=== PATIENT | male | born 1940 | race Caucasian/White ===

== ENCOUNTER 2016-12-02 15:12 | Inpatient (IN) | payer MEDICARE ==
[2016-12-02] VITALS (8 sets, daily range): BP systolic 145–205; BP diastolic 62–117
[~2016-12-02] VITALS: Ht 167.6 cm; Wt 89.2 kg
--- NOTE | 2016-12-02 15:45 | NUR ---
BP DR. CLEANING NOTIFIED.
[2016-12-02 16:00] LABS: HEMATOCRIT 40.5 % (42.0-52.0); HEMOGLOBIN 12.9 g/dl (14.0-18.0); MEAN CELL VOLUME 93.8 fl (80.0-94.0); MEAN CORPUSCULAR HGB 29.9 pg (27.0-31.0); MEAN CORPUSCULAR HGB CONC 31.9 g/dl (33.0-37.0); MEAN PLATELET VOLUME 10.5 fl (9.6-12.3); NUCLEATED RED BLOOD CELL 0.1 % (0.0-0.0); PLATELET COUNT AUTOMATED 86 10*3/uL (130-400); RED BLOOD COUNT 4.32 10*6/uL (4.50-5.90); RED CELL DISTRI WIDTH 14.2 % (0-14.5)
[2016-12-02 16:07] LABS: ACT PARTIAL THROMBO TIME 22.3 SECONDS (20.8-31.5)
[2016-12-02 16:13] LABS: ALBUMIN 3.2 gm/dl (3.1-4.5); ALKALINE PHOSPHATASE 84 U/L (45-117); BUN 29 mg/dl (7-24); CHLORIDE 103 mmol/L (98-107); CREATININE 1.38 mg/dL (0.70-1.30); LIPASE 42 U/L (73-393); POTASSIUM 3.8 mmol/L (3.5-5.1); SGOT/AST 11 IU/L (3-35); SGPT/ALT 15 U/L (12-78); SODIUM 139 mmol/L (136-145); TOTAL PROTEIN 5.9 gm/dL (6.4-8.2); TROPONIN I < 0.015 ng/ml (<0.045)
[2016-12-02 16:19] LABS: BASOPHILS 1 % (0-1); PLATELET SUFFICIENCY LOW (NORMAL); TOTAL CELLS COUNTED 100 #CELLS
[2016-12-02 16:21] LABS: BURR CELLS FEW; OVALOCYTES FEW
[2016-12-02 16:23] LABS: WHITE BLOOD COUNT 43.6 10*3/uL (4.8-10.8)
--- NOTE | 2016-12-02 16:23 | NUR ---
PT BACK FROM CT AND BP STILL 200. HYDRALAZINE IV ORDERED.
--- NOTE | 2016-12-02 16:24 | NUR ---
CRITICAL LEVEL FROM LAB. WBC 43.6. DR. CLEANING NOTIFIED.
[2016-12-02 17:07] LABS: BILIRUBIN NEGATIVE (NEGATIVE); BLOOD TRACE-INTACT (NEGATIVE); CLARITY SL CLOUDY (CLEAR); COLOR YELLOW (YELLOW); GLUCOSE 2+ (NEGATIVE); KETONE TRACE (NEGATIVE); LEUKO ESTERASE NEGATIVE (NEGATIVE); NITRITE NEGATIVE (NEGATIVE); SPECIFIC GRAVITY 1.025 (1.005-1.030); UROBILINOGEN 0.2 E.U./dl (0.2-1.0)
[2016-12-02 17:18] LABS: BACTERIA TRACE; EPITHELIAL CELLS 0-2
[2016-12-02 17:19] LABS: MUCOUS 1+
--- NOTE | 2016-12-02 20:00 | NUR ---
A 76, admitted to , under the services of SAVANAH Lutz DO with a diagnosis of CLOSED HEAD INJURY .. Chief complaint is LACERATION TO FOREHEAD.. Patient arrived via ambulance from ER. Monitor applied. Initial assessment completed. Vital signs taken and recorded. SAVANAH LUTZ DO notified of admission to the unit. Orders received. See assessment for past medical history, medications and allergies. Patient and/or family oriented to unit. [facility] visitation policy reviewed. Clothing/patient valuable form completed. JEFFERY MOSELEY
[2016-12-02] MEDS ORDERED: COZAAR100 MG PO (22:11)
[2016-12-02] MEDS ORDERED: METFORMIN500 MG PO (22:11)
[2016-12-02] MEDS ORDERED: 'CLONIDINE0.1 MG PO (22:12)
[2016-12-02] MEDS ORDERED: IMDUR SA30 MG PO (22:13)
[2016-12-02] MEDS ORDERED: PRAVACHOL40 MG PO (22:13)
[2016-12-02] MEDS ORDERED: ZOLOFT100 MG PO (22:14)
[2016-12-02] MEDS ORDERED: TOPROL XL25 MG PO (22:14)
[2016-12-02] MEDS ORDERED: AMITRIPTYLINE25 MG PO (22:15)
[2016-12-02] MEDS ORDERED: HUMALOG100 UNIT/2 SQ (22:16)
[2016-12-02] MEDS ORDERED: ARICEPT10 M1 PO (22:16)
[2016-12-02] MEDS ORDERED: DOXAZOSIN MESYLA1 MG PO (22:16)
[2016-12-02] MEDS ORDERED: PROTONIX TR40 M1 PO (22:17)
[2016-12-02] MEDS ORDERED: OXYBUTYNIN5 MG PO (22:17)
[2016-12-02] MEDS ORDERED: CREON DR 24,001 EACH PO (22:18)
[2016-12-02] MEDS ORDERED: Sinemet Cr 50/21 TAB PO (22:19)
[2016-12-02] MEDS ORDERED: HYDR25T PO (22:19)
[2016-12-02 22:55] LABS: ABG BASE EXCESS -1.2 mmol/L (-2.0-2.0); ABG HCO3 22.8 mmol/l (22-26); ABG O2 SATURATION 91.8 % (95-97); ARTERIAL BLOOD GAS PCO2 36.5 mmHg (35-45); ARTERIAL BLOOD GAS PH 7.408 (7.35-7.45); ARTERIAL BLOOD GAS PO2 63.5 mmHg (80-90)
[2016-12-03] VITALS: BP 147/95
--- NOTE | 2016-12-03 | NUR ---
PT. RESTING IN BED. AWAKE & ALERT. IV FLUIDS INFUSING INTO LEFT ARM WITHOUT DIFFICULTY; SITE ASYMPTOMATIC. PULSE OX 91% ON ROOM AIR. APPLIED 02 AT 2.5 LITERS & PULSE OX IS NOW 93%. PT. STATES THAT HE WEARS A CPAP AT HOME AT NIGHT. LUNGS DIMINISHED BILATERALLY WITH NO COUGH NOTED. THAO HOSE/SCD'S INTACT. PT'S IS PRESENT IN THE ROOM. STATES THAT PT'S BLOOD SUGAR IS 405; PT. HAS AN INSULIN PUMP.
--- NOTE | 2016-12-03 02:00 | NUR ---
BLOOD SUGAR 345.
--- NOTE | 2016-12-03 06:10 | NUR ---
TOOK PO MEDICATION WITHOUT DIFFICULTY. REFSUSES PAIN MEDICATION AT THIS TIME. IV FLUIDS CONTINUE TO INFUSE WITHOUT DIFFICULTY. PRESENT IN ROOM.
[2016-12-03 06:19] LABS: HEMATOCRIT 38.5 % (42.0-52.0); HEMOGLOBIN 12.3 g/dl (14.0-18.0); MEAN CELL VOLUME 93.7 fl (80.0-94.0); MEAN CORPUSCULAR HGB 29.9 pg (27.0-31.0); MEAN CORPUSCULAR HGB CONC 31.9 g/dl (33.0-37.0); MEAN PLATELET VOLUME 10.9 fl (9.6-12.3); PLATELET COUNT AUTOMATED 99 10*3/uL (130-400); RED BLOOD COUNT 4.11 10*6/uL (4.50-5.90); RED CELL DISTRI WIDTH 14.3 % (0-14.5)
[2016-12-03 06:41] LABS: TOTAL CELLS COUNTED 100 #CELLS
[2016-12-03 06:42] LABS: PLATELET SUFFICIENCY LOW (NORMAL)
[2016-12-03 06:44] LABS: WHITE BLOOD COUNT 50.8 10*3/uL (4.8-10.8)
[2016-12-03 06:48] LABS: BUN 30 mg/dl (7-24); CHLORIDE 105 mmol/L (98-107); CHOLESTEROL 106 mg/dL (<200); CREATININE 1.15 mg/dL (0.70-1.30); HDL CHOLESTEROL 41 mg/dl (40-60); LDL CHOLESTEROL 44 mg/dL (9-159); PHOSPHOROUS 2.7 mg/dL (2.5-4.9); POTASSIUM 3.2 mmol/L (3.5-5.1); SODIUM 143 mmol/L (136-145); TRIGLYCERIDES 103 mg/dl (<150); VLDL CHOLESTEROL 21 mg/dL (6-40)
[2016-12-03 06:54] LABS: FREE T4 1.16 ng/dl (0.76-1.46)
--- NOTE | 2016-12-03 06:54 | NUR ---
CALLED AND NOTIFIED DR PALACIOS OF WBC CRITICAL RESULTS OF 50.8. NO NEW ORDERS RECEIVED.
[2016-12-03 07:11] LABS: VITAMIN D, 25-HYDROXY 32.5 ng/mL (30-100)
[2016-12-03 08:00] VITALS: BP 117/82
--- NOTE | 2016-12-03 08:30 | NUR ---
Cost Estimating Clerk in to talk to patient. Patient states lives at HOME with HIS WIFE0. There are A FEW steps in the home. Physician: DR TERRELL [facility] NONE Patient's level of ADLs: MODERATE ASSIST Patient has working utilities: YES DME: CANE/CPAP Follow-up physician's appointment after d/c: WILL BE MADE PRIOR TO DC Does patient want to access PORTAL?: Discharge plan HOME. NADEEN SANTONE PRESENT. THEY ARE NOT INTERSTED IN SNF. WOULD LIKE A WALKER. SCRIPR OBTAINED AND FAXED TO [facility]. PER GER, THEY WILL DELIVER TODAY TO HIS ROOM. PT WANTS TO STAY HERE UNDER HIS MEDICARE. AWARE HE MAY HAVE COPAY. STATES THEY HAVE SECONDARY INS THAT WILL COVER THIS COST. REFUSAL TO TRANSFER TO [facility] PAPER SIGNED AND FAXED TO [facility] AND [facility] IN BILLING.
[2016-12-03 12:00] VITALS: BP 155/90
--- NOTE | 2016-12-03 12:29 | NUR ---
PHYSICAL THERAPY PAtient eating lunch. Michelle Ann,PT
--- NOTE | 2016-12-03 13:56 | NUR ---
PHYSICAL THERAPY PAtient evaliuated on 4, full evaluation to follow. Continue with PT as per plan of care with fall, alarms, right visual field defecit and decreased safety precautions. Recommend in-patient reahb versus SNF, but patient leaving for [place] at end of month and doubt he will agree. PAtient is high complexity via chart review, tests and evaluation: 21809. Thank you for this referral. Michelle Ann,PT
--- NOTE | 2016-12-03 13:57 | NUR ---
Received order for home health nursing when patient is discharged. In to see patient, provided list of home health agencies. patient stated he lives in [facility] and chose [facility]. Contacted agency and faxed referral
[2016-12-03 16:00] VITALS: BP 170/66
--- NOTE | 2016-12-03 20:00 | NUR ---
PT. CONFUSED; ASKING IF I CAN TAKE HIM TO THE NEXT ROOM. ASKING WHERE HIS IS. REORIENTED TO TIME & PLACE. PT. EASILY REORIENTS. CALL LIGHT WITHIN REACH. WILL CONTINUE TO MONITOR.
[2016-12-04] VITALS (7 sets, daily range): BP systolic 102–190; BP diastolic 60–92
--- NOTE | 2016-12-04 02:00 | NUR ---
PT. REMAINS CONFUSED; PULLED IV OUT. WILL RESTART. ALSO TAKING OFF GOWN.
--- NOTE | 2016-12-04 02:15 | NUR ---
IV started left hand with #22 angiocath after 2 attempts. The IV site was prepped with Chloraprep. Heparin lock attached. Sterile dressing applied. Patient tolerated precedure well. Procedure performed according to [facility] policy & procedure. CANDACE CORONEL
--- NOTE | 2016-12-04 02:32 | NUR ---
PATIENT WAS GIVEN HYDRALAZINE FOR BP OF 190/92 TAKEN MANUALLY. SEE EMAR. WILL CONTINUE TO MONITOR AND REASSESS.
--- NOTE | 2016-12-04 04:23 | NUR ---
CALLED DR. TRONCOSO PERTAINING TO PT'S ELEVATED BLOOD PRESSURE OF 180/90.
--- NOTE | 2016-12-04 06:00 | NUR ---
MEDICATED WITH APRESOLINE PER M.D. ORDERS FOR ELEVATED BLOOD PRESSURE. PT. LESS RESTLESS AT THIS TIME; TAKES PO MEDICATIONS WITHOUT DIFFICULTY.
[2016-12-04 06:15] LABS: HEMATOCRIT 39.4 % (42.0-52.0); HEMOGLOBIN 12.4 g/dl (14.0-18.0); MEAN CELL VOLUME 93.6 fl (80.0-94.0); MEAN CORPUSCULAR HGB 29.5 pg (27.0-31.0); MEAN CORPUSCULAR HGB CONC 31.5 g/dl (33.0-37.0); MEAN PLATELET VOLUME 10.6 fl (9.6-12.3); NUCLEATED RED BLOOD CELL 0.1 % (0.0-0.0); PLATELET COUNT AUTOMATED 89 10*3/uL (130-400); RED BLOOD COUNT 4.21 10*6/uL (4.50-5.90); RED CELL DISTRI WIDTH 14.5 % (0-14.5)
[2016-12-04 06:36] LABS: CHLORIDE 108 mmol/L (98-107); CREATININE 0.83 mg/dL (0.70-1.30); POTASSIUM 3.5 mmol/L (3.5-5.1); SODIUM 143 mmol/L (136-145)
[2016-12-04 06:37] LABS: BUN 20 mg/dl (7-24)
[2016-12-04 06:57] LABS: WHITE BLOOD COUNT 48.5 10*3/uL (4.8-10.8)
--- NOTE | 2016-12-04 07:00 | NUR ---
CALLED DR. TRONCOSO WITH WBC RESULTS.
[2016-12-04 07:04] LABS: PLATELET SUFFICIENCY LOW (NORMAL); TOTAL CELLS COUNTED 100 #CELLS
--- NOTE | 2016-12-04 08:19 | NUR ---
MEDICATED WITH PRN IV ZOFRAN FOR NAUSEA/DARK ORANGE MUCOUSY SMALL AMOUT EMESIS X 1.
--- NOTE | 2016-12-04 08:35 | NUR ---
PRN IV ZOFRAN EFFECTIVE FOR NAUSEA, PER PATIENT.
[2016-12-04 09:42] LABS: URINE AMPHETAMINES < 1000 (1000ng/ml); URINE CANNABINOIDS (THC) < 50 (50ng/ml); URINE COCAINE < 300 (300ng/ml); URINE METHADONE < 300 (300ng/ml)
[2016-12-04 09:44] LABS: URINE BARBITURATES < 200 (200ng/ml); URINE BENZODIAZEPINES < 200 (200ng/ml); URINE OPIATES < 300 (300ng/ml)
[2016-12-04 09:45] LABS: URINE PHENCYCLIDINE < 25 (25ng/ml)
--- NOTE | 2016-12-04 10:47 | NUR ---
PHYSICAL THERAPY Mr Younger seen for his therapy session, present. Transfer supine/sit MOD A X 1, sitting balance once up CG X 1, X 4 min sitting. Sit/stand and up on his wheeled walker standing balance MOD A X 1. Then gait 85' X 2, with W/W and MOD LIQUOR ESTABLISHMENT MANAGER X 1, with verbal cueing for gait, walker, balance, turn safety, one stop/start gait with MOD A X 1. After gait Pt up in his bedside chair followed by act Ex to bilateral LE of marching, LAQ's, and ankle pumps with verbal cueing for each Ex. Pt with call light and going to stay. EMY DASILVA DESIGNER.
--- NOTE | 2016-12-04 13:32 | NUR ---
Patient and requested information regarding skilled rehab. In to discuss, provided list of facilities, they requested a referral be made to [facility]. Contacted [facility] and faxed referral. Patient requires 3 night stay. If accepted patient can be discharged tomorrow. Waiting on accpetance.
--- NOTE | 2016-12-04 14:07 | NUR ---
Patient has been accepted to [facility] Requires 3 night stay. Patient can be discharged tomorrow, wednesday12/05/16. Nurse to nurse report [phone] ask for [facility]. hens completed online
--- NOTE | 2016-12-04 14:16 | NUR ---
PHYSICAL THERAPY CO-SIGN I approve of the Phyical Therapy notes written above. TOY GARCIA PT
--- NOTE | 2016-12-04 14:26 | NUR ---
[facility] called and stated they received prior authorization that over-rides the 3 nights stay. Patient can be discharged to [facility] today.
[2016-12-04] MEDS ORDERED: BACITRACIN 500U30 GM T (15:39)
--- NOTE | 2016-12-04 18:15 | NUR ---
ATTEMPTED TO CALL REPORT TO [facility], PER STAFF, ACCOUNTS SPECIALIST MUST BE CONTACTED IN ORDER TO DETERMINE IF PATIENT CAN BE ACCEPTED TONIGHT. RECEIVING NURSE CALLED BACK AND STATED PATIENT MAY COME TO [facility]. PROCEEDING WITH THE DISCHARGE ORDERED FOR TODAY.
--- NOTE | 2016-12-04 18:37 | NUR ---
PATIENT DISCHARGED TO ER FRONT LOBBY BY WHEELCHAIR, ACCOMPANIED BY [facility], FOR TRANSPORT TO [address] BY [address]HICLE WITH . REPORT CALLED TO RECEIVING NURSE AT [facility].
--- NOTE | 2016-12-04 19:04 | NUR ---
[facility] NURSE CALLED, STATES THAT PATIENT MAY NOT BE ADMITTED TO [facility] AND WILL BE SENT BACK TO [facility] FOR ONE MORE NIGHT D/T NEEDS 3 DAY STAY. EXPLAINED THAT A NOTE FROM CASE MANAGEMENT STATES THAT 3 DAY STAY WAS OVERRIDDEN, PER [facility] STAFF EARLIER TODAY AT 1425, PER NOTE. PER NURSE, THIS INFORMATION WAS NOT ACCURATE. NURSING PATIENT RELATIONS COORDINATOR NOTIFIED, PATIENT'S HAS A HOME PHONE NUMBER LISTED A CONTACT.
--- NOTE | 2016-12-04 19:11 | NUR ---
DR. PALACIOS NOTIFIED OF PATIENT DISCHARGED BUT [facility] WILL NOT ACCEPT THE PATIENT, HE ADVISED CALLING THE TRAINING PROGRAM ASSISTANT CLIENT SERVICE PROFESSIONAL TO NOTIFY OF THE SITUATION. NURSING AUTO REPAIR SHOP MANAGER ATTEMPTING TO GET IN TOUCH WITH A TRAINING PROGRAM ASSISTANT TO CALL THE FLOOR TO ADVISE ON THE SIUTATION.
--- NOTE | 2016-12-04 19:19 | NUR ---
REACHED AT HER HOME. SHE IS COMING BACK TO THE HOSPITAL WITH THE PATIENT AT THIS TIME. PARKING LOT LABORER IS SPEAKING WITH [facility] STAFF CURRENTLY, ENVIRONMENTAL HEALTH NURSE WILL NOTIFY HER.
--- NOTE | 2016-12-04 19:30 | NUR ---
PER TIN CAN LABORER, PATIENT WILL RETURN TO HIS ROOM D/T PATIENT MUST COMPLETE 3 DAY STAY PER JEANIE AND THIS WILL NOT BE OVERRIDDEN. DR. PALACIOS NOTIFIED, HE IS CALLING [facility] ALSO.
--- NOTE | 2016-12-04 20:31 | NUR ---
PATIENT ARRIVED BACK TO FLOOR WITH BELONGINGS AND .
--- NOTE | 2016-12-04 20:39 | NUR ---
DR BETHEA AWARE OF PATIENT'S RETURN. STATES NOT TO RESTART AN IV. AND HE IS DISCONTINUING THE MONITOR AND FLUIDS.
--- NOTE | 2016-12-04 21:55 | NUR ---
INSULIN INFUSION SET CHANGED. PATIENT HAD A SIGNIFICANT AMOUNT OF TROUBLE REMEMBERING HOW TO DO THIS, EVEN WITH BOOK FROM [employer] WITH DIRECTIONS IN HAND. HAS NO EDUCATION ON THIS PROCESS. ASSISTED WITH INSTRUCTION BOOK AND THIS RN.
--- NOTE | 2016-12-04 22:10 | NUR ---
Patient's berthaalog delivered to pharmacy
--- NOTE | 2016-12-04 22:35 | NUR ---
SPOKE WITH JAY FROM [facility]. SHE STATES THAT SHE WILL BE HERE AT 8AM ON 12/05/16 TO ASSESS THE PATIENT. SHE ALSO STATES THAT SHE NEEDS PROOF THAT THERE WAS NEVER A BREAK IN THE PATIENT'S ADMISSION. LINING STRAP CLOSER AWARE.
[2016-12-05] VITALS: BP 150/70
[2016-12-05 07:15] LABS: HEMATOCRIT 36.3 % (42.0-52.0); HEMOGLOBIN 11.4 g/dl (14.0-18.0); MEAN CELL VOLUME 95.3 fl (80.0-94.0); MEAN CORPUSCULAR HGB 29.9 pg (27.0-31.0); MEAN CORPUSCULAR HGB CONC 31.4 g/dl (33.0-37.0); MEAN PLATELET VOLUME 10.8 fl (9.6-12.3); NUCLEATED RED BLOOD CELL 0.1 % (0.0-0.0); PLATELET COUNT AUTOMATED 85 10*3/uL (130-400); RED BLOOD COUNT 3.81 10*6/uL (4.50-5.90); RED CELL DISTRI WIDTH 14.6 % (0-14.5)
[2016-12-05 07:31] LABS: OVALOCYTES FEW; PLATELET SUFFICIENCY LOW (NORMAL); TOTAL CELLS COUNTED 100 #CELLS
[2016-12-05 07:34] LABS: WHITE BLOOD COUNT 39.7 10*3/uL (4.8-10.8)
[2016-12-05 07:49] LABS: BUN 20 mg/dl (7-24); CHLORIDE 107 mmol/L (98-107); CREATININE 1.05 mg/dL (0.70-1.30); POTASSIUM 3.5 mmol/L (3.5-5.1); SODIUM 144 mmol/L (136-145)
[2016-12-05 08:00] VITALS: BP 162/68
--- NOTE | 2016-12-05 11:30 | NUR ---
DISCHARGE INFORMATION GIVEN TO AND PT AND BOTH VERBALIZED GOOD UNDERSTANDING
[2016-12-05 12:00] VITALS: BP 156/72
--- NOTE | 2016-12-05 12:25 | NUR ---
SPOKE WITH RAMON AT [facility] NO FURTHER REPORT NEEDED TO DRIVE PT THERE AFTER LUNCH
--- NOTE | 2016-12-05 12:30 | NUR ---
DISCHARGE WOUND PIC TAKEN YESTERDAY <24 HOURS AGO
--- NOTE | 2016-12-05 13:05 | NUR ---
PT DISCHARGED WITH
== END 2016-12-05 13:05 | disposition other institution (70) | DRG 987 ==
LOC: ED 15:12 → EDHOLD 18:53 → 4E 18:53
PROVIDERS: Emergency Medicine; Internal Medicine; Internal Medicine Hematology & Oncology; Student in an Organized Health Care Education/Training Program; ADMIT Internal Medicine
PROC: 0WQ2XZZ Repair Face, External Approach (ICD-10-PCS; principal; 2016-12-02)
DX: D32.9 Benign neoplasm of meninges, unspecified (principal); J96.01 Acute respiratory failure with hypoxia; N17.0 Acute kidney failure with tubular necrosis; E44.0 Moderate protein-calorie malnutrition; C91.10 Chronic lymphocytic leukemia of B-cell type not having achieved remission; G91.2 (Idiopathic) normal pressure hydrocephalus; S09.90XA Unspecified injury of head, initial encounter; E11.65 Type 2 diabetes mellitus with hyperglycemia; I16.1 Hypertensive emergency; D69.6 Thrombocytopenia, unspecified; S01.81XA Laceration without foreign body of other part of head, initial encounter; D64.9 Anemia, unspecified; R26.81 Unsteadiness on feet; E86.0 Dehydration; W18.39XA Other fall on same level, initial encounter; G20 Parkinson's disease; I10 Essential (primary) hypertension; K21.9 Gastro-esophageal reflux disease without esophagitis; R80.9 Proteinuria, unspecified; Z79.899 Other long term (current) drug therapy; Z79.4 Long term (current) use of insulin; Z90.49 Acquired absence of other specified parts of digestive tract; Z90.79 Acquired absence of other genital organ(s); Z87.891 Personal history of nicotine dependence; Y93.89 Activity, other specified; Y92.89 Other specified places as the place of occurrence of the external cause; Y99.8 Other external cause status; Z85.47 Personal history of malignant neoplasm of testis; Z81.8 Family history of other mental and behavioral disorders; Z80.1 Family history of malignant neoplasm of trachea, bronchus and lung; Z68.31 Body mass index [BMI] 31.0-31.9, adult